=== PATIENT | female | born 1985 ===

== ENCOUNTER 2018-12-10 11:44 | Emergency (ER) | payer SELFPAY ==
[2018-12-10 11:54] VITALS: BMI 35.3
[2018-12-10 11:59] VITALS: RESP 18
[2018-12-10] MEDS ORDERED: Lidocaine 5% Patch TD STA (12:36)
--- NOTE | 2018-12-10 13:25 | ED PDOC ---
Arrival/HPI - General Chief Complaint: Back Pain Historian: Patient - History of Present Illness Narrative History of Present Illness (Text): 12/10/18 13:24 Violetta Solano is a 33 year old female with no significant past medical history, who presents to the emergency department complaining of back and neck pain. Patient states back pain began on Tuesday after carrying heavy boxes on . Patient states taking naproxen for pain with no significant change in pain severity. Patient notes back pain is localized in the midline. Patient denies any fever, chills, chest pain, shortness of breath, nausea, vomiting, diarrhea, urinary symptoms, back pain, neck pain, headache, dizziness, or any other complaints. Time/Duration: < week (3 days) Symptom Onset: Gradual Symptom Course: Unchanged Context: Home Past Medical History - Provider Review Nursing Documentation Reviewed: Yes - Infectious Disease Hx of Infectious Diseases: None - Endocrine/Metabolic Hx Diabetes Mellitus Type 2: Yes - Psychiatric Hx Substance Use: No - Surgical History Hx Gastric Bypass Surgery: Yes (2016) - Anesthesia Hx Anesthesia Reactions: No Hx Malignant Hyperthermia: No Family/Social History - Physician Review Nursing Documentation Reviewed: Yes Family/Social History: Unknown Family HX Smoking Status: Never Smoked Hx Alcohol Use: No Hx Substance Use: No Allergies/Home Meds Allergies/Adverse Reactions: Allergies mushroom Allergy (Uncoded 12/10/18 11:55) RASH Review of Systems - Review of Systems Constitutional: absent: Fatigue, Fevers Respiratory: absent: SOB, Cough Cardiovascular: absent: Chest Pain Gastrointestinal: absent: Abdominal Pain Musculoskeletal: Back Pain (Midline back pain. ), Neck Pain Skin: absent: Rash, Laceration Neurological: absent: Headache, Dizziness Psychiatric: absent: Anxiety, Depression Physical Exam Vital Signs Reviewed: Yes Vital Signs Temp Pulse Resp BP Pulse Ox 12/10/18 11:44 98.7 F 79 18 126/74 100 Temperature: Afebrile Blood Pressure: Normal Pulse: Regular Respiratory Rate: Normal Appearance: Positive for: Well-Appearing, Non-Toxic, Comfortable Pain Distress: None Mental Status: Positive for: Alert and Oriented X 3 - Systems Exam Head: Present: Atraumatic, Normocephalic Pupils: Present: PERRL. No: Sluggish, Non-Reactive Extroacular Muscles: Present: EOMI Conjunctiva: Present: Normal Mouth: Present: Moist Mucous Membranes, Dry Neck: Present: Normal Range of Motion. No: Meningeal Signs, JVD Respiratory/Chest: Present: Clear to Auscultation, Good Air Exchange. No: Respiratory Distress, Accessory Muscle Use, Wheezes, Decreased Breath Sounds Cardiovascular: Present: Regular Rate and Rhythm, Normal S1, S2. No: Murmurs Abdomen: No: Tenderness, Distention, Peritoneal Signs Back: Present: Normal Inspection, CVA Tenderness (CVA Tenderness on the right side. ), Midline Tenderness (Lumbar back pain. ) Upper Extremity: Present: Normal Inspection. No: Cyanosis, Edema Lower Extremity: Present: Normal Inspection. No: Edema Neurological: Present: GCS=15, Speech Normal Skin: Present: Warm, Dry, Normal Color. No: Rashes Psychiatric: Present: Alert, Oriented x 3, Normal Insight, Normal Concentration Medical Decision Making ED Course and Treatment: 12/10/18 13:38 Impression: 33 year old female who presents tot the emergency department complaining of back and neck pain. Differential Diagnosis included but are not limited to: Plan: -- Lidoderm -- Toradol -- diaZepam -- POC urine tets -- LS spine with OBL > 18 yrs old radiology -- Reassess and disposition Prior Visits: Notes and results from previous visits were reviewed. Progress Notes: - RAD Interpretation Narrative RAD Interpretations (Text): 12/10/18 15:06 Radiographs of the lumbar spine FINDINGS: BONES: Normal alignment. No listhesis. No fracture. DISC SPACES: Disc space heights are relatively maintained. Small marginal anterolateral osteophytes are seen at several levels. The facets are hypertrophic L5-S1 through the L2-L3 levels in somewhat decreasing order of severity OTHER FINDINGS: None. IMPRESSION: No acute fractures. Minor degenerative spondylosis most notably affecting the facet joints as above. - Medication Orders Current Medication Orders: Discontinued Medications Diazepam (Valium) 5 mg PO ONCE ONE; Protocol Stop: 12/10/18 12:37 Last Admin: 12/10/18 13:04 Dose: 5 mg Ketorolac Tromethamine (Toradol) 60 mg IM STAT STA Stop: 12/10/18 12:37 Last Admin: 12/10/18 13:04 Dose: 60 mg MAR Pain Assessment Document 12/10/18 13:04 CD (Rec: 12/10/18 13:04 CD [id number] Pain Reassessment Is this a pain reassessment? No Sleep Is patient sleeping during reassessment? No Presence of Pain Presence of Pain Yes Pain Scale Used Protocol: PSCALES Pain Scale Used Numeric Location Left, Right or Bilateral Bilateral Pain Location Body Site Back Description Description Intermittent Intensity of Pain at present 8 Aggravating Factors Changing Position Alleviating Factors/Management Relaxation Techniques Techniques IM Administration Charges Document 12/10/18 13:04 CD (Rec: 12/10/18 13:04 CD [id number] Injection Site MAR Injection Site Right Gluteus Ray Charges for Administration # of IM Administrations 1 Lidocaine (Lidoderm) 1 ea TD STAT STA Stop: 12/10/18 12:37 Last Admin: 12/10/18 13:03 Dose: 1 ea MAR Transdermal Patch Site Document 12/10/18 13:03 CD (Rec: 12/10/18 13:04 CD [id number] Transdermal Patch Site Transdermal Patch Site Left Lower Back - Scribe Statement The provider has reviewed the documentation as recorded by the Scribe All medical record entries made by the Scribe were at my direction and personally dictated by me. I have reviewed the chart and agree that the record accurately reflects my personal performance of the history, physical exam, medical decision making, and the department course for this patient. I have also personally directed, reviewed, and agree with the discharge instructions and disposition. Disposition/Present on Arrival - Present on Arrival Any Indicators Present on Arrival: No History of DVT/PE: No History of Uncontrolled Diabetes: No Urinary Catheter: No History of Decub. Ulcer: No History Surgical Site Infection Following: None - Disposition Have Diagnosis and Disposition been Completed?: Yes Diagnosis: Back pain Disposition: HOME/ ROUTINE Disposition Time: 15:40 Patient Plan: Discharge Discharge Instructions (ExitCare): Upper Back Pain (DC) Print Language: DIVEHI Additional Instructions: All medical record entries made by the Scribe were at my direction and personally dictated by me. I have reviewed the chart and agree that the record accurately reflects my personal performance of the history, physical exam, medical decision making, and the department course for this patient. I have also personally directed, reviewed, and agree with the discharge instructions and disposition. Pleas follow up with your PCP Please take medications as prescribed If possible, please schedule a visit with the neurologist Prescriptions: Cyclobenzaprine [Cyclobenzaprine HCl] 10 mg PO Q6H #10 tab Lidocaine 5% [Lidoderm] 1 patch TOP Q12 #5 patch Naproxen 500 mg PO BID #10 tab Referrals: Karrie Garcia MD [Medical Doctor] - [place] up with primary [facility] [place] - Follow up with primary Tadeo Lynn MD [Staff Provider] - Follow up with primary Forms: [facility] ([place]an), WORK NOTE
--- NOTE | 2018-12-10 15:09 | RAD ---
Date of service: 12/10/2018 PROCEDURE: Radiographs of the Lumbar Spine. (4 views) HISTORY: Midline tenderness COMPARISON: No prior. TECHNIQUE: 5 views obtained. FINDINGS: BONES: Normal alignment. No listhesis. No fracture. DISC SPACES: Disc space heights are relatively maintained. Small marginal anterolateral osteophytes are seen at several levels. The facets are hypertrophic L5-S1 through the L2-L3 levels in somewhat decreasing order of severity OTHER FINDINGS: None. IMPRESSION: No acute fractures. Minor degenerative spondylosis most notably affecting the facet joints as above.
[2018-12-10 16:05] VITALS: BP 121/71; PULSE 76; TEMP 98.5; O2SAT 99
== END 2018-12-10 16:04 | disposition home or self-care (01) ==
LOC: MERGE 11:44 → ED 11:44
DX: M54.9 Dorsalgia, unspecified (principal)
CPT/HCPCS: 72110; 81025; 96372; 99282; J1885